=== PATIENT | female | born 1990 | race Two or more races ===

== ENCOUNTER 2020-04-18 05:43 | Emergency (ER) | payer MEDICAID ==
[~2020-04-18] VITALS: Ht 149.9 cm; Wt 61.2 kg
[2020-04-18] MEDS ORDERED: ONDANSETRON HCL 4 MG/2 ML VIAL IV ONE (06:15)
[2020-04-18] MEDS ORDERED: MORPHINE SULFATE 4 MG/ML SYR/VIAL IV ONE (06:15)
[2020-04-18] MEDS ORDERED: SODIUM CHLORIDE 0.9% 1,000 ML IV ONE ×3 (06:15→07:45)
[2020-04-18 06:50] LABS: Basophils # (auto) 0 10 ^3/uL (0-0.2); Basophils % (auto) 0.1 % (0.0-2.0); Eosinophils # (auto) 0 10 ^3/uL (0-0.8); Hemoglobin 10.6 g/dL (12.2-16.2); Lymphocytes % (auto) 19.4 % (10.0-50.0); Mean Corpuscular Hemoglobin 23.2 pg (28.0-32.0); Mean Corpuscular Hgb Conc. 32.1 g/dL (32.0-36.0); Mean Corpuscular Volume 72.3 fL (80.0-100.0); Monocytes # (auto) 0.6 10 ^3/uL (0-1.3); Monocytes % (auto) 5.3 % (0.0-12.0); Neutrophils # (auto) 7.9 10 ^3/uL (1.6-8.6); Neutrophils % (auto) 75.2 % (37.0-80.0); Platelet Count (auto) 397 10^3/uL (140-450); Red Blood Cells 4.56 10^6/uL (4.0-5.20); Red Cell Distribution Width 19.6 % (11.8-14.3); White Blood Cell 10.6 10^3/uL (4.4-10.8)
[2020-04-18 07:00] LABS: Albumin 4.7 g/dL (3.4-5.0); Calcium 9.5 mg/dL (8.5-10.1)
[2020-04-18 07:03] LABS: BUN/Creatinine Ratio 20.2; Bilirubin, Total 0.4 mg/dL (0.2-1.0)
[2020-04-18] MEDS ORDERED: PROCHLORPERAZINE EDISYLATE 5 MG/ML 2ML VIAL IV ONE (10:00)
[2020-04-18] MEDS ORDERED: PROCHLORPERAZINE EDISYLATE 5 MG/ML 2ML VIAL ONE (10:00)
[2020-04-18] MEDS ORDERED: PROCHLORPERAZINE MALEATE 10 MG TAB PO ONE (10:00)
[2020-04-18 10:09] LABS: Amphetamine Screen, Urine NEGATIVE (NEGATIVE); Barbiturate Scree,Urine NEGATIVE (NEGATIVE); Benzodiazephine Screen, Urine NEGATIVE (NEGATIVE); Cannabinoid Screen, Urine POSITIVE (NEGATIVE); Cocaine Screen, Urine NEGATIVE (NEGATIVE); Opiate Scree,Urine POSITIVE (NEGATIVE); Phencyclidine Screen, Urine NEGATIVE (NEGATIVE)
[2020-04-18 10:19] LABS: Urine Bacteria FEW /hpf (None Seen); Urine Blood Negative /uL (Negative); Urine Hyaline Cast FEW /lpf (0 - 2); Urine Mucus MODERATE (None Seen); Urine Specific Gravity 1.024 (1.001-1.035); Urine WBC 8 /hpf (0 - 5)
[2020-04-18 11:30] VITALS: BP 132/87
[2020-04-18] MEDS ORDERED: POTASSIUM EFFERVESENT TAB 25 MEQ PO ONE (11:45)
== END 2020-04-18 11:59 | disposition home or self-care (01) ==
LOC: ER 05:43
DX: N39.0 Urinary tract infection, site not specified (principal); E87.6 Hypokalemia; E86.0 Dehydration; F12.19 Cannabis abuse with unspecified cannabis-induced disorder; N20.0 Calculus of kidney
CPT/HCPCS: 36415; 74176; 80053; 80307; 81001; 83690; 85025; 96361; 96374; 96375; 99285; J0780; J2270; J2405; J7030; 96365

== ENCOUNTER 2020-04-18 20:40 | Emergency (ER) | payer MEDICAID ==
[~2020-04-18] VITALS: Ht 149.9 cm; Wt 61.2 kg
[2020-04-18] MEDS ORDERED: LIDOCAINE VISCOUS 2% 15ML UD PO ONE (21:45)
[2020-04-18] MEDS ORDERED: ALUM & MAG HYDROX-SIMETH LIQ(MAALOX) 30 ML PO ONE (21:45)
[2020-04-18] MEDS ORDERED: DONNATAL 5ml ORAL Elix (BELLADONNA ALK-PHENOBARB) PO ONE (21:45)
[2020-04-19 01:00] VITALS: BP 129/92
== END 2020-04-19 01:55 | disposition home or self-care (01) ==
LOC: ER 20:40
DX: K29.70 Gastritis, unspecified, without bleeding (principal); N20.0 Calculus of kidney; D64.9 Anemia, unspecified; F12.19 Cannabis abuse with unspecified cannabis-induced disorder; Z87.440 Personal history of urinary (tract) infections

== ENCOUNTER 2022-01-30 04:11 | Observation (INO) | payer MEDICAID ==
[~2022-01-30] VITALS: Ht 149.9 cm; Wt 68.0 kg
[2022-01-30] MEDS ORDERED: LACTATED RINGER'S 1,000 ML IV SCH (04:30)
[2022-01-30] MEDS ORDERED: PANTOPRAZOLE 40 MG/10 ML VIAL INJ IV ONE (04:30)
[2022-01-30] MEDS ORDERED: LACTATED RINGER'S 1,000 ML IV ONE (04:30)
[2022-01-30] MEDS ORDERED: ONDANSETRON HCL 4 MG/2 ML VIAL ONE (04:38)
[2022-01-30] MEDS ORDERED: ONDANSETRON HCL 4 MG/2 ML VIAL IV ONE ×2 (04:45→07:45)
[2022-01-30 05:03] LABS: Basophils # (auto) 0 10 ^3/uL (0-0.2); Eosinophils # (auto) 0 10 ^3/uL (0-0.8); Eosinophils % (auto) 0.1 % (0.0-7.0); Monocytes # (auto) 0.6 10 ^3/uL (0-1.3); Neutrophils # (auto) 6.1 10 ^3/uL (1.6-8.6); Nucleated Red Blood Cells % 0.1 %; White Blood Cell 9.9 10^3/uL (4.4-10.8)
[2022-01-30 05:06] LABS: Basophils % (auto) 0.1 % (0.0-2.0); Hematocrit 29.3 % (36.0-46.0); Hemoglobin 9.4 g/dL (12.2-16.2); Lymphocytes # (auto) 3.1 10 ^3/uL (0.4-5.4); Lymphocytes % (auto) 31.7 % (10.0-50.0); Mean Corpuscular Hemoglobin 25.2 pg (28.0-32.0); Mean Corpuscular Hgb Conc. 32.2 g/dL (32.0-36.0); Mean Corpuscular Volume 78.4 fL (80.0-100.0); Monocytes % (auto) 5.9 % (0.0-12.0); Neutrophils % (auto) 62.2 % (37.0-80.0); Red Blood Cells 3.75 10^6/uL (4.0-5.20); Red Cell Distribution Width 16.8 % (11.8-14.3)
[2022-01-30] MEDS ORDERED: fentaNYL CITRATE 100 MCG/2 ML VL IM ONE (05:15)
[2022-01-30] MEDS ORDERED: ceFAZolin 2 GM in D5W 5% 100 ML IV ONE (05:15)
[2022-01-30 05:19] LABS: Potassium 3.7 mmol/L (3.5-5.1)
[2022-01-30 05:26] LABS: Albumin 2.9 g/dL (3.4-5.0); BUN/Creatinine Ratio 13.4; Bilirubin, Total 0.4 mg/dL (0.2-1.0); Calcium 9.4 mg/dL (8.5-10.1); Total Protein 7.6 g/dL (6.4-8.2)
[2022-01-30] MEDS ORDERED: ceFAZolin 1GM/50ML 100 ML IV ONE (05:39)
[2022-01-30 05:52] LABS: Alcohol, Urine < 3.0 mg/dL (0-10); Amphetamine Screen, Urine NEGATIVE (NEGATIVE); Barbiturate Scree,Urine NEGATIVE (NEGATIVE); Benzodiazephine Screen, Urine NEGATIVE (NEGATIVE); Cannabinoid Screen, Urine POSITIVE (NEGATIVE); Cocaine Screen, Urine NEGATIVE (NEGATIVE); Protein, Urine 25.9 mg/dL (0.0-11.9)
[2022-01-30 06:00] LABS: Creatinine, Urine 163 mg/dL (30.0-125.0); Opiate Scree,Urine NEGATIVE (NEGATIVE); Phencyclidine Screen, Urine NEGATIVE (NEGATIVE)
[2022-01-30] MEDS ORDERED: fentaNYL CITRATE 100 MCG/2 ML VL IV ONE (06:15)
[2022-01-30 06:50] LABS: Urine Amorphous Crystal MANY /hpf (None Seen); Urine Bacteria NONE SEEN /hpf (None Seen); Urine Blood 1+ /uL (Negative); Urine Budding Yeast MANY /hpf (None Seen); Urine Mucus FEW (None Seen); Urine Specific Gravity 1.026 (1.001-1.035); Urine WBC 33 /hpf (0 - 5); Urine WBC Clumps PRESENT /hpf (None Seen)
[2022-01-30 07:13] VITALS: BP 129/82
[2022-01-30] MEDS ORDERED: ONDANSETRON HCL 4 MG/2 ML VIAL IM ONE (07:15)
== END 2022-01-30 09:25 | disposition home or self-care (01) ==
LOC: LDRP 04:11
PROVIDERS: ADMIT Obstetrics & Gynecology; ATTEND Obstetrics & Gynecology
DX: O26.893 Other specified pregnancy related conditions, third trimester (principal); R10.13 Epigastric pain; O99.613 Diseases of the digestive system complicating pregnancy, third trimester; K21.9 Gastro-esophageal reflux disease without esophagitis; O21.2 Late vomiting of pregnancy; O99.323 Drug use complicating pregnancy, third trimester; F12.90 Cannabis use, unspecified, uncomplicated; Z3A.36 36 weeks gestation of pregnancy
CPT/HCPCS: 36415; 59025; 76705; 76805; 80053; 80307; 81001; 82150; 82570; 83690; 84156; 85025; 94760; 96361; 96365; 96372; 96375; C9113; G0378; J0690; J2405; J3010; J7060; 96360; 96374